=== PATIENT | female | born 1950 | race Caucasian/White ===

== ENCOUNTER → 2018-07-04 13:05 | Outpatient (CLI) | payer MEDICARE | END | disposition home or self-care (01) | LOC: D.MRI 13:00 | DX: M54.16 Radiculopathy, lumbar region (principal) ==

== ENCOUNTER → 2018-07-30 12:26 | Outpatient (CLI) | payer MEDICARE ==
--- NOTE | ~2018-07-30 | HEMODYNAMI ---
PATIENT:NAOMI OCONNELL MEDICAL RECORD: [id number] : 46 LOCATION:[facility] ADMISSION DATE: 07/30/18 Generatedon:07/30/201814:10 Patient name: NAOMI OCONNELL Patient #: [id number] SSN: : 1950 Date of study: 07/30/2018 Page: Of Hemodynamic Procedure Report Patient Data Patient Demographics Procedure consent was obtained First Name: NAOMI Gender: Female Last Name: KOURTNEY : 1950 Patient #: [id number] Age: 68 year(s) Race: Unknown Additional ID: [id number] Contact details [address]: [address] [place] [address] State: [place] City: [place] Zip code: [address] Past Medical History Allergies: No known allergies Admission Admission Data Admission Date: 07/30/2018 Admission Time: 12:26 Procedure Procedure Types Cath Procedure Peripheral Cath Diagnostic Procedure Miscellaneous Procedure Description Procedure Date Procedure Date: 07/30/2018 Procedure Start Time: 14:00 Procedure Staff Name Function Ambrocio Roque MD Performing Physician Fer Schroeder RT Monitor Gali Gomez RN Nurse Procedure Data Cath Procedure Fluoroscopy Diagnostic fluoroscopy Total fluoroscopy Time: 0.4 time: 0.4 min min Diagnostic fluoroscopy Total fluoroscopy dose: 15 dose: 15 mGy mGy Hemodynamics Rest Pre Cath Intra NCS Post Cath Procedure Log Time Note 13:08:52 Fer Schroeder RT (R) (CV) sent for patient. Start room use. 13:09:07 Patient received from Other to IR Alert and oriented. Tansferred to table in Supine position. 13:09:08 Correct patient and procedure confirmed by team. 13:09:10 Signed procedure consent form obtained from patient. 13:09:12 - 13:09:13 Pre-procedure instructions explained to patient. 13:09:14 Pre-op teaching completed and patient verbalized understanding. 13:09:22 Patient allergic to No known allergies 13:09:40 Right groin area was prepped with chlora-prep and draped in sterile fashion 13:58:53 Physician arrived 13:58:54 --------ALL STOP TIME OUT------ 13:58:58 Right groin site verified by team. 13:59:03 Sedation plan: Local Anesthetic Medication:Lidocaine 14:00:01 Local anesthetic to right hip with Lidocaine 1% by Ambrocio Roque MD.INITIAL ACCESS ONLY 14:00:24 SAFE-T PLUS MYELOGRAM TRAY opened to sterile field. 14:08:14 Procedure ended.(Physican Out) 14:08:47 Fluoroscopy time 00.40 minutes. 14:08:51 Flurop Dose total: 15 14:08:51 Fluoroscopy dose: 15 mGy 14:08:54 Sharps counted by scrub and verified by R.N. 14:09:14 bandaide applied sight stable pt.sent home Device Usage Item Name Manufacture Quantity Catalog Hospital Part Current Minimal Lot# / Number Charge Number Stock Stock Serial# Code SAFE-T [employer] 1 [id number] PLUS MYELOGRAM TRAY Signature Audit [place] Stage Time Signature Unsigned Intra-Procedure 07/30/2018 Fer 2:10:08 PM Alexandre RT (R) (CV) Signatures Monitor : Fer Signature : Alexandre RT Date : Time : [facility] [address] [facility] [place] [address]
== END | disposition home or self-care (01) ==
LOC: D.SP 12:26 → D.RAD 13:00 → D.SP 13:00
DX: M25.551 Pain in right hip (principal); Z01.812 Encounter for preprocedural laboratory examination